=== PATIENT | male | born 1950 | race Hispanic/Latino ===

== ENCOUNTER 2020-07-14 19:24 | Emergency (ER) | payer OTHER, MEDICARE ==
[2020-07-14] MEDS ORDERED: ONDANSETRON ODT 4 MG TAB ONE (21:14)
== END 2020-07-14 21:10 | disposition home or self-care (01) ==
LOC: EDH 19:24
DX: R11.2 Nausea with vomiting, unspecified (principal); R10.84 Generalized abdominal pain; I10 Essential (primary) hypertension; E07.9 Disorder of thyroid, unspecified; Z98.890 Other specified postprocedural states

== ENCOUNTER → 2022-02-18 | Outpatient (CLI) | payer MEDICARE, OTHER | END | disposition home or self-care (01) | LOC: SHCH 11:40 | PROVIDERS: ATTEND Internal Medicine Cardiovascular Disease | DX: I35.1 Nonrheumatic aortic (valve) insufficiency (principal); I10 Essential (primary) hypertension; E78.5 Hyperlipidemia, unspecified | CPT/HCPCS: 93306 ==

== ENCOUNTER → 2022-06-20 | Outpatient (CLI) | payer OTHER ==
[~2022-06-20] MED LIST: IOHEXOL-350 75 ML VIAL IV ONE
== END | disposition home or self-care (01) ==
LOC: RAH 13:27
PROVIDERS: ATTEND Family Medicine
DX: K11.8 Other diseases of salivary glands (principal)
CPT/HCPCS: 70492; Q9967